=== PATIENT | female | born 1945 | race Caucasian/White ===

== ENCOUNTER 2021-03-27 09:01 | Observation (INO) | payer MEDICARE, SELFPAY ==
[2021-03-27] VITALS (12 sets, daily range): BP systolic 122–171; BP diastolic 61–90; PULSE 63–86; RESP 16; TEMP 36.1–37.3; O2SAT 94–100; BMI 20.5
--- NOTE | 2021-03-27 | APP_PTH ---
PATIENT: RENETTA RILEY LOC: MS3 U#:[id number] AGE/SX: 75/F ROOM: MD314 RE03/27/[address]: Dr. Betsy Dobbins MD : 1945 BED: 1 DIS: 03/27/2021 SPEC #: [id number] RECD: 03/29/21 11:28 STATUS: HARRIET NUNES #: [id number] JANENE: 03/27/21 00:[address]: Betsy Dobbins DEPT: SURGICAL PATHOLOGY RECD BY: Taye Estevez ENTERED: 03/29/21 11:29 SP TYPE: APPENDIX OTHR DR: Dr. Alvaro Boyce MD Tissues: Appendix, NOS Procedures: Surgery Specimen Level III HEADER OPERATION: Laparoscopic, appendectomy PRE-OP DIAGNOSIS: Acute appendicitis. No abscess or perforation. TISSUE SUBMITTED: Appendix MICROSCOPIC DIAGNOSIS Appendix, appendectomy: Acute appendicitis Acute serositis. AM;am 03/30/21 MICROSCOPIC DESCRIPTION Slides are reviewed. GROSS DESCRIPTION Received in fixative is one container labeled with the patient's name and designated appendix. The specimen consists of appendix measuring 6.0cm in length and up to 1.0 cm in diameter. No gross perforations are evident. Serial sections reveal a patent lumen with fecal material. No mass lesion is identified. [employer] Representative sections are submitted in one cassette. / AM;am 03/29/21 TC;2 CPT: 29164
--- NOTE | 2021-03-27 09:19 | CT_ITS ---
STUDY: CT ABDOMEN AND PELVIS WITH CONTRAST REASON FOR EXAM: Female, 75 years old. Abdominal pain RADIATION DOSAGE (If Supplied By Facility): CTDIvol = ( 9.97 ) mGy, DLP = ( 287.00 ) mGycm TECHNIQUE: CT images were obtained from the dome of the diaphragm to the symphysis pubis without oral contrast. IV 75mL Isovue-370 was administered. Sagittal and coronal images were reconstructed. Individualized dose optimization techniques were used for this CT. COMPARISON: None. FINDINGS: The visualized lung bases are unremarkable. The visualized portions of the heart are within normal limits. Normal liver. Gallbladder is removed. Normal spleen. Normal pancreas. Normal bilateral adrenal glands. Normal right kidney. Normal left kidney. There is no intestinal obstruction. There is appendicitis without perforation or abscess. There is mild diffuse peritoneal inflammation. Normal abdominal aorta. Normal inferior vena cava. Normal retroperitoneum. Normal urinary bladder. Normal abdominal wall. Normal osseous structures. CT/Abdomen/Pelvis W IV Cont ONLY IMPRESSION: 1. Acute appendicitis. No abscess or perforation. 2. Possibly mild peritonitis/mesenteric edema, nonspecific. Electronically Signed: Melvi Márquez MD at 11:10 EDT Tel , Service support ,
--- NOTE | 2021-03-27 09:20 | ED.VIS.GI ---
HPI HPI - GI History of Present Illness Chief Complaint: Abd Pain Informant: patient Narrative Narrative: 75-year-old female presents the emergency room with abdominal pain and vomiting. Patient states that last night she went to a fish brown at her [employer]. She ate around 1600 hrs. She began to have an a aching gnawing sensation in her epigastrium and right upper quadrant. States that during the night it got worse. At 4:00 in the morning she was vomiting. Pain was not radiating to her flank. She states that reminded her very much of the pain she had when she had a cholecystectomy 5 years ago. Patient denies any history of pancreatitis. She states that when she threw up it was basically her meal that she had 8 to 12 hours previously. No diarrhea. No fever. [facility] Medical History Hypothyroidism Home Medications levothyroxine 50 mcg PO DAILY 01/21/16 [History Last Taken Unknown] Allergy/AdvReac Type Severity Reaction Status Date / Time Penicillins [PCN] AdvReac Hives Verified 03/27/21 09:04 Surgical History S/P cholecystectomy Social History (Updated 03/27/21 @ 09:[address] Harrison Muñoz DO) Smoking Status: Never smoker details: On the keto diet substance use type: does not use ROS ROS ED Constitutional Constitutional ED: Denies chills or weight loss Eyes Eyes: Denies change in vision or diplopia ENT ENT ED: Denies ear pain, rhinorrhea or sore throat Cardiovascular Cardiovascular: Denies chest pain, orthopnea, palpitations or racing heartbeat Respiratory/Chest Respiratory/Chest: Denies cough, dyspnea or orthopnea Gastrointestinal Gastrointestinal: Reports abdominal pain, nausea and vomiting; Denies diarrhea Genitourinary Genitourinary ED: Denies dysuria, hematuria or urinary frequency Musculoskeletal Musculoskeletal: Denies arthralgias or myalgias Integumentary Denies abscess or rash Neurologic Neurologic: Denies headache(s) or weakness Psychiatric Psychiatric: Denies anxiety, depression, suicidal ideation or suicidal thoughts Endocrine Endocrinology: Denies polydipsia, polyphagia or polyuria Allergic/Immunologic Allergic/Immunologic ED: Denies mouth swelling, tongue swelling or urticaria EXAM Physical Exam Const Vital Signs: 03/27/21 09:02 Temperature 97.4 F L Temperature Source Temporal Pulse Rate 66 Respiratory Rate 16 Blood Pressure 156/72 H Blood Pressure Mean 100 Pulse Ox 98 Oxygen Delivery Method Room Air Positive well nourished and well developed General Appearance ED: well developed HEENT Reports normocephalic, head/scalp atraumatic and moist mucous membranes Eyes PERRL and EOMs intact bilaterally Neck no lymphadenopathy, supple and no JVD Resp normal respiratory effort and clear to auscultation bilaterally Cardio regular rate, regular rhythm and no murmurs GI normal to inspection, nondistended, normoactive bowel sounds GI Narrative: Mild tenderness palpation to the right abdomen Inspection: Negative for abdominal distention Auscultation: normoactive bowel sounds Palpation: soft; Negative for guarding or rebound tenderness present Back/Spine no CVA tenderness and normal ROM Extremity normal to inspection General Extremety ED: Negative for edema General Extremity: Negative for edema Neuro oriented x3 and CN's II-XII intact bilaterally Sensorium / Orientation: alert Motor Exam: strength 5/5 throughout Psych mental status grossly normal Mood & Affect: Negative for depressed or tearful Skin no rashes or lesions noted and no wounds MDM MDM MDM Narrative Medical decision making narrative: White count elevated 13.5. CT the abdomen pelvis demonstrates uncomplicated appendicitis. Patient is feeling better after some morphine and Zofran. We are going to change her preoperative EKG and administer Cipro Flagyl due to penicillin allergy. Dr. Dobbins has been contacted will be in to see the patient Lab Data Attestation: I reviewed the patient's lab results. Labs: Laboratory Results - last 24 hr 03/27/21 03/27/21 09:25 09:25 WBC 13.5 H RBC 4.24 Hgb 13.8 Hct 41.3 MCV 97.4 MCH 32.5 H MCHC 33.4 RDW Std Deviation 45.1 H RDW Coeff of Peter 12.7 Plt Count 166 MPV 10.6 Immature Gran % (Auto) 0.400 Neut % (Auto) 92.0 H Lymph % (Auto) 3.9 L [place] % (Auto) 3.6 Eos % (Auto) 0.0 Baso % (Auto) 0.1 Absolute Neuts (auto) 12.4 H Absolute Lymphs (auto) 0.53 L Nucleated RBC % 0 Sodium 137 Potassium 3.7 Chloride 105 Carbon Dioxide 25.0 Anion Gap 7 BUN 30 H Creatinine 0.97 Estim Creat Clear Calc 35.83 Est GFR (MDRD) Af Amer 72 Est GFR (MDRD) Non-Af 59 L BUN/Creatinine Ratio 31.0 H Glucose 111 H Calcium 9.0 Total Bilirubin 0.80 Direct Bilirubin 0.17 AST 17 ALT 18 Alkaline Phosphatase 72 Total Protein 7.7 Albumin 3.8 Globulin 3.9 Lipase 217 Radiography Diagnostic Testing: Radiology Impression Abdomen/Pelvis CT 03/27/21 09:19 IMPRESSION: 1. Acute appendicitis. No abscess or perforation. 2. Possibly mild peritonitis/mesenteric edema, nonspecific. Electronically Signed: Melvi Márquez MD at 11:10 EDT Tel , Service support , EKG Initial EKG: Attestation: I personally reviewed and interpreted this EKG as follows: Comments: EKG is a normal sinus rhythm with a ventricular rate of 67 bpm. Discharge Plan Dx/Rx/DC Orders Clinical Impression: Acute appendicitis Disposition Disposition: Acute Care Hospital [facility]
[2021-03-27] MEDS: Ondansetron 4 MG/2 ML Vial IV ×2 (09:31→17:25)
[2021-03-27] MEDS: Morphine 2 MG/ML Syringe IV ×2 (09:32→17:26)
[2021-03-27 09:35] LABS: Absolute Lymphocyte Count 0.53 X10^3/uL (0.83-4.51); Absolute Neutrophil Count 12.4 X10^3/uL (2.0-7.7); Basophil# 0.02 X10^3/uL; Basophil% 0.1 % (0-1); Hematocrit 41.3 % (37-47); Hemoglobin 13.8 g/dL (12.0-15.0); Lymphocyte # 0.53 X10^3/ul (0.83-4.51); Lymphocyte % 3.9 % (19-41); Mean Corp Hgb Conc 33.4 g/dL (32-36); Mean Corpuscular Hgb 32.5 pg (27.0-32.0); Mean Corpuscular Volume 97.4 fL (81-99); Mean Platelet Vol. 10.6 fl (6.2-12.0); Monocyte# 0.48 X10^3/uL; Monocyte% 3.6 % (0-10); NRBC Flagged by Analyzer 0 % (0-5); Neutrophil # 12.44 X10^3/uL (2.7-7.7); POSITIVE DIFFERENTIAL YES; Platelet Count 166 K/mm3 (150-450); RBC Distribution Width CV 12.7 % (11.6-14.6); RBC Distribution Width SD 45.1 fl (35.1-43.9); Red Blood Count 4.24 M/mm3 (4.2-5.4); White Blood Count 13.5 K/mm3 (4.4-11.0)
[2021-03-27 09:36] LABS: Differential Indicated SCAN CRITERIA MET
[2021-03-27 09:53] LABS: AST(SGOT) 17 U/L (15-37); Alanine Aminotransfer ALT/SGPT 18 U/L (13-56); Albumin, Serum 3.8 g/dL (3.2-5.0); Alkaline Phosphatase 72 U/L (45-117); Anion Gap 7 (5-15); BUN 30 mg/dL (7-18); Bilirubin, Direct 0.17 mg/dL (0.00-0.30); Chloride 105 mmol/L (98-107); Creatinine, Serum 0.97 mg/dL (0.55-1.02); EST Glomerular Filtration Rate 59 mL/min (>60); Est Glom Filt Rate - Afr Amer 72 mL/min (>60); Estimated Creatinine Clearance 35.83 ml/min; Globulin 3.9 g/dL (2.2-4.2); Glucose 111 mg/dL (74-106); Lipase 217 U/L (73-393); Potassium 3.7 mmol/L (3.5-5.1); Protein, Total 7.7 g/dL (6.4-8.2); Sodium Level 137 mmol/L (136-145)
--- NOTE | 2021-03-27 11:40 | EKG12_ITS ---
Test Reason : PRE OP Blood Pressure : / mmHG Vent. Rate : 067 BPM Atrial Rate : 067 BPM P-R Int : 166 ms QRS Dur : 086 ms QT Int : 418 ms P-R-T Axes : 079 063 068 degrees QTc Int : 441 ms Normal sinus rhythm Nonspecific ST and T wave abnormality Abnormal ECG Confirmed by RODRIGO GUTIERREZ, SANKET ([id number]), fashion editor DUYEN WARD ([id number]) on 03/29/2021 8:51:09 AM Referred By: Confirmed By:SANKET WALLACE MD
[2021-03-27] MEDS: Ciprofloxacin 400 MG/200 ML BAG 200 MG IV (12:09)
--- NOTE | 2021-03-27 12:14 | PCM.HP.STD ---
HPI - General General Date of Admission: 03/27/21 HPI Narrative RENETTA RILEY, is a 75 F who presents to the ER due to right lower quadrant pain. Pain started last night patient had nausea and vomiting this morning. Patient CT abdomen pelvis consistent with acute appendicitis. Patient white blood cell count is 13.5. Patient is receiving Cipro/Flagyl IV in the ER. Patient did have a colonoscopy about a year ago that was normal. [facility] Medical History Hypothyroidism Home Medications levothyroxine 50 mcg PO DAILY 01/21/16 [History Last Taken Unknown] Allergy/AdvReac Type Severity Reaction Status Date / Time Penicillins [PCN] AdvReac Hives Verified 03/27/21 09:04 Surgical History S/P cholecystectomy Social History (Updated 03/27/21 @ 09:[address] Harrison Muñoz DO) Smoking Status: Never smoker details: On the keto diet substance use type: does not use Vital Signs Vital Signs Vital Signs: 03/27/21 09:02 03/27/21 12:05 Temperature 97.4 F L 98.4 F Temperature Source Temporal Oral Pulse Rate 66 74 Respiratory Rate 16 16 Blood Pressure 156/72 H 161/78 H Blood Pressure Mean 100 105 Blood Pressure Source Monitor Blood Pressure Position Semi-Fowlers Blood Pressure Location Right Arm Pulse Ox 98 100 Oxygen Delivery Method Room Air Room Air Weight Weight: 101 lb 6.602 oz Body Mass Index (BMI) 20.5 Physical Exam Const alert, oriented x3 and no apparent distress HEENT normocephalic and head/scalp atraumatic Resp normal respiratory effort Cardio regular rate GI soft to palpation; Negative for non-distended Palpation: tender RLQ; Negative for guarding Extremity no clubbing, cyanosis or edema Neuro CN's II-XII intact bilaterally Psych mental status grossly normal Results Lab / Micro Data Result Diagrams: 03/27/21 09:25 03/27/21 09:25 Labs: Laboratory Results - last 24 hr 03/27/21 09:25: WBC 13.5 H, RBC 4.24, Hgb 13.8, Hct 41.3, MCV 97.4, MCH 32.5 H, MCHC 33.4, RDW Std Deviation 45.1 H, RDW Coeff of Peter 12.7, Plt Count 166, MPV 10.6, Immature Gran % (Auto) 0.400, Neut % (Auto) 92.0 H, Lymph % (Auto) 3.9 L, [place] % (Auto) 3.6, Eos % (Auto) 0.0, Baso % (Auto) 0.1, Absolute Neuts (auto) 12.4 H, Absolute Lymphs (auto) 0.53 L, Nucleated RBC % 0 03/27/21 09:25: Sodium 137, Potassium 3.7, Chloride 105, Carbon Dioxide 25.0, Anion Gap 7, BUN 30 H, Creatinine 0.97, Estim Creat Clear Calc 35.83, Est GFR (MDRD) Af Amer 72, Est GFR (MDRD) Non-Af 59 L, BUN/Creatinine Ratio 31.0 H, Glucose 111 H, Calcium 9.0, Total Bilirubin 0.80, Direct Bilirubin 0.17, AST 17, ALT 18, Alkaline Phosphatase 72, Total Protein 7.7, Albumin 3.8, Globulin 3.9, Lipase 217 Radiology Impression Abdomen/Pelvis CT 03/27/21 09:19 IMPRESSION: 1. Acute appendicitis. No abscess or perforation. 2. Possibly mild peritonitis/mesenteric edema, nonspecific. Electronically Signed: Melvi Márquez MD at 11:10 EDT Tel , Service support , Assessment & Plan Assessment/Plan (1) Acute appendicitis: PLAN: 1. Discussed procedure laparoscopic appendectomy, possible open along with the risk but not limited to bleeding, infection/abscess, injury to another organ (small bowel, colon, etc.), adhesion, hernia at incision sites, and anesthesia. Patient and her no further questions this time. Betsy Dobbins M.D. Pager: [phone] [facility] [address] [place] [address], [address] [place] [id number] Office: [phone] Procedure Criteria Type of Procedure Procedure Type: Elective Elective Risks - COVID COVID Risk Discussion: The surgeon/proceduralist and patient have discussed in detail the risk of exposure to and/or potential harm posed by the COVID-19 virus with having a surgery/procedure at this time versus the risk of delaying the surgery/procedure. It is not possible to know either the risk of delaying the surgery or procedure or chance of getting an infection with perfect accuracy, but a joint decision was made between the patient and the surgeon/proceduralist to proceed at this time with the scheduled surgery/procedure as indicated on the consent form.
[2021-03-27] MEDS: metroNIDAZOLE 500 MG/100 ML BAG 100 MG IV (13:00)
[2021-03-27] MEDS: Bupivacaine Mpf 0.5% 30 ML VIAL (13:18)
--- NOTE | 2021-03-27 13:28 | PCM.OPRPT ---
Report of Operation Date of Procedure: 03/27/21 Pre-Operative Diagnosis: acute appendicitis Post-Operative Diagnosis: acute appendicitis Surgery/Procedure Performed:: laparoscopic appendectomy Surgeon: Betsy Dobbins Type of Anesthesia: General/Supplemental Anesthesiologist: Rob Ackerman Special Medications: cipro 400 mg IV x1, flagy 500 mg IV x1 Specimen's removed: appendix Estimated Blood Loss (mL): <10 cc Fluids Replaced: per anesthesia Description of Procedure: Indications: 75-year-old female presented to the ER with new right lower quadrant pain yesterday. On workup she was found to have acute appendicitis on CT and a leukocytosis of 13.5. Patient was started on antibiotics in the ER for acute appendicitis-cipro/flagyl IV. Description of the procedure: The patient was placed on operating table in supine position. General anesthesia was induced. A timeout was completed verifying correct patient, procedure, position and special equipment prior to beginning procedure. Abdomen was prepped and draped in usual sterile fashion. Incision was made in the natural skin line [above] the umbilicus with a 15 blade scalpel. The fascia was elevated and incised. Entry into the peritoneum was confirmed visually and no bowel was noted in the vicinity of the incision. The Martinez trocar was placed under direct vision. Abdomen insufflated with a pressure of 12-15 mmHg. Patient tolerated insertion well. The scope was inserted and the abdomen inspected. No injuries from initial trocar placement were noted. Minimal amount of fluid was seen in the right lower quadrant. An direct visualization 2 -5 mm trocars were placed one above the symphysis pubis and below the hairline and one in the left lower quadrant lateral to the rectus muscle. Care is taken to avoid injury to the bladder and inferior epigastric vessels. The table was placed in Trendelenburg position with the right side elevated. The appendix was grasped with atraumatic grasper and elevated. It was noted to be inflamed. A window was developed in the mesoappendix at the point between the base of the appendix and the cecum. An endoscopic 45 mm linear cutting stapler blue load was then used to divide and staple the base of the appendix. Enseal was used to divide the mesoappendix. The appendix was withdrawn into the Martinez trocar after being placed endoscopically retrieval bag. Appendix was sent to pathology. The appendiceal stump was then irrigated and hemostasis was assured. Fluid was suctioned no other pathology was identified. Secondary trochars were removed under direct visualization. No bleeding was noted trocar sites. The laparoscope withdrawn and the umbilical trocar removed. The abdomen was allowed to collapse. Local anesthesia of 30 mL of 0.5% Marcaine was used at the incision sites. The umbilical trocar site was closed with the [id number] 0 Vicryl suture. The skin was closed up to clear sutures of 4-0 Monocryl and Steri-Strips. The patient was extubated. The patient tolerated the procedure well and was taken to the postanesthesia care unit in satisfactory condition. Complications none
--- NOTE | 2021-03-27 13:41 | EX.PCM.DISCH ---
Discharge Instructions Diet Discharge Diet: Light diet - advance as tolerated Activity Discharge Activity: May Not Drive (while taking narcotic pain medications.) May shower in (days): 1 Lifting Restrictions: no lifting >20 lbs x 2 wks, no strenuous exercise for 4 wks Dressing / Incision Call your doctor if your incision/area has: Continuous Slow Oozing, Sudden Increased Bleeding, Increased Pain/ Swelling, Increased Redness, Foul Smelling Discharge and Swelling at the incision site Call your doctor if you observe: Fever of 101 or Higher Remove Dressing in: 2 days Cleanse incision/area with: Soap & Water Additional Dressing/Incision Instructions:: Steri-Strips will fall off in 7 to 10 days, if they do not fall off okay to remove after 10 days. Follow Up Care Please Follow Up With: Betsy Dobbins MD When: Call the office for a follow-up appointment 2 weeks; after 5 PM and on the weekends call [phone] with any concerns. Test Results: Test results from this visit will be discussed in further detail at your follow-up appointment, if applicable. Discharge Plan Admission Admit Date/Time: 03/27/21 11:54 Attending Provider: Betsy Dobbins Primary Care Provider: Alvaro Boyce Discharge Orders/Prescriptions Prescriptions: New oxycodone-acetaminophen 5-325 mg tablet 1 tab PO Q6H PRN (Reason: pain) 4 Days Qty: 10 RF: 0 Continued levothyroxine 50 MCG tablet 50 mcg PO DAILY RF: 0 Referrals / Follow Up: Alvaro Boyce MD [Primary Care Provider] - Disposition Disposition (needs filled in before D/C Order can be placed): Home, Self Care
[2021-03-27] MEDS: 0.9% Normal Saline 1,000 ML 100 ML IV (18:28)
--- NOTE | 2021-03-27 21:23 | NURSING ---
Pharmacy delivered pt's pain medication to room.
== END 2021-03-27 21:30 | disposition home or self-care (01) ==
LOC: ED 11:54 → MS3 12:03
PROVIDERS: Admitting Provider Surgery; Emergency Provider Emergency Medicine; PCP Family Medicine; Visit Provider Surgery
PROC: 0DTJ4ZZ Resection of Appendix, Percutaneous Endoscopic Approach (ICD-10-PCS; CPT 44970; principal; 2021-03-27 12:45)
DX: K35.80 Unspecified acute appendicitis (principal); E03.9 Hypothyroidism, unspecified; Z79.890 Hormone replacement therapy
CPT/HCPCS: 44970; 74177; 80048; 80076; 83690; 85025; 87426; 88304; 93005; 96361; 96374; 96375; 96376; 99251; 99284; J7030; Q9967; A4216; C1760; G0463; J0744; J2405

== ENCOUNTER 2023-06-06 14:40 | Emergency (ER) | payer MEDICARE, SELFPAY ==
[2023-06-06 14:41] VITALS: BP 184/74; PULSE 54; RESP 16; TEMP 37.2; O2SAT 98; BMI 21.2
--- NOTE | 2023-06-06 15:21 | CT_ITS ---
INDICATION: Abdominal pain EXAMINATION: CT ABDOMEN AND PELVIS WITH CONTRAST - CT Abdomen And Pelvis W/ Contrast Injection TECHNIQUE: Helically acquired images were obtained of the abdomen and pelvis following IV contrast. A radiation dose optimization technique was used for this scan. IV Contrast dosage and agent: 75 cc Isovue-370 Oral contrast: Yes. COMPARISON: 03/27/2021 FINDINGS: LOWER CHEST: Lung bases are clear. No cardiomegaly or pericardial effusion. LIVER: Homogeneous. No concerning focal mass. GALLBLADDER AND BILIARY TREE: Cholecystectomy. No intra- or extrahepatic biliary ductal dilation. PANCREAS: No focal cystic or solid mass. SPLEEN: Normal size without focal cystic or solid mass. ADRENAL GLANDS: No nodules. KIDNEYS AND URETERS: Nonobstructing bilateral renal calculi. Right hydroureteronephrosis without obstructing calculus in the lumen of the right ureter. PERITONEUM: No ascites or free air. BOWEL: Prior appendectomy. No stomach or bowel distension. No focal inflammatory change. LYMPH NODES: No enlarged mesenteric or retroperitoneal lymph nodes. VESSELS: Aorta is non-dilated. URINARY BLADDER: Unremarkable. REPRODUCTIVE ORGANS: No pelvic masses. ABDOMINAL WALL: No discrete abdominal or pelvic wall hernia. BONES: No acute or aggressive abnormality. CT/Abdomen/Pelvis WITH Contrast IMPRESSION: Right hydroureteronephrosis without obstructing ureteral calculus. Findings may represent recent passage of urinary calculus no longer present or ascending UTI. Bilateral nonobstructing nephrolithiasis. Electronically Signed: Julian Rosa MD at 19:08 EST ,
--- NOTE | 2023-06-06 15:28 | ED.VIS.GI ---
HPI HPI - GI History of Present Illness Chief Complaint: Abd Pain Informant: patient Abdominal Pain/Flank Pain Onset: Yesterday Context: Gradual Onset Timing: Continuous Quality: Sharp Location: RUQ and Right Flank Current Severity: Severe Maximum Severity: Severe Worsened by: Nothing Relieved by: Nothing Nausea/Vomiting/Emesis GI Symptom: Positive for Nausea and Vomiting Onset: Yesterday Quality: Positive for Blood streaks and Hematemesis Diarrhea/Melena/Hematochezia GI Symptom: Negative for Diarrhea, Melena or Hematochezia Associated Symptoms Associated Symptoms: Negative for Dysuria, Frequency or Hematuria Narrative Narrative: Patient presents with abdominal pain that began yesterday. Patient states it is mainly over the right upper abdomen and radiates around to the right flank area. Patient states she has been having some nausea and vomiting today. Patient states she has been vomiting up some blood-streaked emesis. Patient denies any melena or hematochezia. Patient denies any diarrhea. Patient describes her pain as sharp. Patient states it is constant. Patient states nothing makes it better and nothing makes it worse. Patient denies any dysuria or hematuria. Patient denies any fevers or chills. [facility] Medical History Hypothyroidism Home Medications levothyroxine 50 mcg tablet 50 mcg PO DAILY 01/21/16 [History Last Taken Unknown] Allergy/AdvReac Type Severity Reaction Status Date / Time Penicillins [PCN] AdvReac Hives Verified 06/06/23 14:42 Surgical History History of laparoscopic appendectomy (~03/2021) S/P cholecystectomy Social History Smoking Status: Never smoker details: On the keto diet substance use type: does not use ROS ROS ED Constitutional Constitutional ED: Denies chills or fever(s) Eyes Eyes: Denies blurry vision or change in vision ENT ENT ED: Denies rhinorrhea or sore throat Cardiovascular Cardiovascular: Denies chest pain or palpitations Respiratory/Chest Respiratory/Chest: Denies cough or dyspnea Gastrointestinal Gastrointestinal: Reports abdominal pain, nausea and vomiting; Denies diarrhea Genitourinary Genitourinary ED: Denies dysuria or hematuria Musculoskeletal Musculoskeletal: Reports back pain; Denies neck pain Integumentary Denies abscess or rash Neurologic Neurologic: Denies headache(s) or weakness Allergic/Immunologic Allergic/Immunologic ED: Denies mouth swelling or urticaria EXAM Physical Exam Const Vital Signs: 06/06/23 14:41 06/06/23 16:41 06/06/23 18:00 Temperature 98.9 F Temperature Source Temporal Pulse Rate 54 L 55 L 55 L Respiratory Rate 16 16 16 Blood Pressure 184/74 H 165/72 H 161/75 H Blood Pressure Mean 110 103 103 Pulse Ox 98 97 95 Oxygen Delivery Method Room Air Room Air Room Air 06/06/23 20:00 Temperature Temperature Source Pulse Rate 53 L Respiratory Rate 16 Blood Pressure 158/80 H Blood Pressure Mean 106 Pulse Ox 95 Oxygen Delivery Method Room Air Positive well nourished and well developed General Appearance ED: well developed and NAD HEENT Reports moist mucous membranes Neck supple and no JVD Resp normal respiratory effort and clear to auscultation bilaterally Cardio regular rate and regular rhythm GI non-distended Palpation: soft and tender epigastric and RUQ; Negative for rebound tenderness present Neuro CN's II-XII intact bilaterally, moves all extremities and no sensory deficits noted Sensorium / Orientation: alert, oriented to person, oriented to place and oriented to time Motor Exam: strength 5/5 throughout Psych mental status grossly normal and thought process normal MDM MDM MDM Narrative Medical decision making narrative: Differential diagnosis includes cholecystitis, cholelithiasis, peptic ulcer disease, duodenal ulcer, bowel obstruction, perforation, gastritis, pancreatitis, pyelonephritis, and urinary tract infection. CBC will be obtained to assess for leukocytosis and anemia. Comprehensive metabolic profile will be obtained to assess for hepatic function, renal function, and electrolyte abnormality. Lipase will be obtained to assess for pancreatitis. Urinalysis will be obtained to assess for urinary tract infection and pyelonephritis. CT scan of the abdomen pelvis will be obtained to assess for bowel obstruction, perforation, cholelithiasis, pyelonephritis. Lab Data Attestation: I reviewed the patient's lab results. Lab results narrative: CBC was reviewed and was within normal limits. Comprehensive metabolic profile was reviewed. BUN was slightly elevated at 29 and creatinine was slightly elevated at 1.14. Lipase was reviewed and was normal at 51. Urinalysis was reviewed. There is no evidence of urinary tract infection. There were 10-25 red blood cells and occult blood was 250. Labs: Laboratory Results - last 24 hr 06/06/23 06/06/23 15:30 16:40 WBC 7.8 RBC 4.23 Hgb 13.3 Hct 40.5 MCV 95.7 MCH 31.4 MCHC 32.8 RDW Std Deviation 45.5 H RDW Coeff of Peter 12.8 Plt Count 159 MPV 10.5 Immature Gran % (Auto) 0.400 Neut % (Auto) 77.2 H Lymph % (Auto) 15.3 L [place] % (Auto) 6.3 Eos % (Auto) 0.4 Baso % (Auto) 0.4 Absolute Neuts (auto) 6.0 Absolute Lymphs (auto) 1.19 Nucleated RBC % 0 Sodium 136 Potassium 3.6 Chloride 102 Carbon Dioxide 24.0 Anion Gap 10 BUN 29 H Creatinine 1.14 H Estim Creat Clear Calc 30.67 Est GFR (MDRD) Af Amer 59 L Est GFR (MDRD) Non-Af 49 L BUN/Creatinine Ratio 25.4 H Glucose 121 H Calcium 9.4 Total Bilirubin 0.80 AST 19 ALT 16 Alkaline Phosphatase 78 Total Protein 7.2 Albumin 3.9 Globulin 3.3 Albumin/Globulin Ratio 1.2 Lipase 51 Urine Color Yellow Urine Clarity Clear Urine pH 6.0 Ur Specific [place] 1.010 Urine Protein 30 H Urine Glucose (UA) Normal Urine Ketones 50 H Urine Occult Blood 250 H Urine Nitrite Negative Urine Bilirubin Negative Urine Urobilinogen Normal Ur Leukocyte Esterase 100 H Urine RBC 10-25 SEEN Urine WBC 0-5 SEEN Ur Squamous Epith Cells 0 SEEN Urine Bacteria 0 SEEN Urine Mucus 0 SEEN Radiography Diagnostic Testing: Clinical Impression(s) from Imaging Studies Abdomen/Pelvis CT 06/06/23 15:21 IMPRESSION: Right hydroureteronephrosis without obstructing ureteral calculus. Findings may represent recent passage of urinary calculus no longer present or ascending UTI. Bilateral nonobstructing nephrolithiasis. Electronically Signed: Julian Rosa MD at 19:08 EST , CT scan of the abdomen and pelvis was obtained. There is right hydroureter and hydronephrosis but no ureteral calculus noted. This could be a recent passage of ureteral calculus. There are nonobstructing calculi in the kidneys bilaterally. This was interpreted by the radiologist and was also independently reviewed by myself. Treatment and Re-Evaluation :: Patient was given IV fluids, morphine, and Zofran. Patient had minimal relief of this. Patient was given a repeat dose of morphine and a dose of Phenergan. Patient was feeling better on reevaluation. Patient was advised of her findings. Patient was instructed to drink plenty of fluids. Patient was instructed to follow-up with her primary care physician in 5 to 7 days. Patient understood and was agreeable with the plan. All questions were answered. Discharge Plan Triage Chief Complaint: Abd Pain ED Provider: Rob Goldman Dx/Rx/DC Orders Clinical Impression: Right ureteral calculus, Hypothyroidism Instructions: ED Kidney Stone, Passed Prescriptions: No Action levothyroxine 50 MCG tablet 50 mcg PO DAILY Primary Care Provider: Alvaro Boyce Referrals: Alvaro Boyce MD [Primary Care Provider] - 5-7 Days Disposition Disposition: Home, Self Care
[2023-06-06] MEDS: 0.9% Normal Saline (1000mL) 1,000 ML 1000 ML IV (15:40)
[2023-06-06] MEDS: Ondansetron 4 MG/2 ML Vial IV (15:40)
[2023-06-06] MEDS: Morphine 4 MG/ML Syringe IV ×2 (15:40→18:43)
[2023-06-06 15:44] LABS: Absolute Lymphocyte Count 1.19 X10^3/uL (0.83-4.51); Basophil# 0.03 X10^3/uL; Basophil% 0.4 % (0-1); Eosinophil# 0.03 X10^3/uL; Eosinophils% 0.4 % (0-5); Hematocrit 40.5 % (37-47); Hemoglobin 13.3 g/dL (12.0-15.0); Lymphocyte # 1.19 X10^3/ul (0.83-4.51); Lymphocyte % 15.3 % (19-41); Mean Corp Hgb Conc 32.8 g/dL (32-36); Mean Corpuscular Hgb 31.4 pg (27.0-32.0); Mean Corpuscular Volume 95.7 fL (81-99); Mean Platelet Vol. 10.5 fl (6.2-12.0); Monocyte# 0.49 X10^3/uL; Monocyte% 6.3 % (0-10); NRBC Flagged by Analyzer 0 % (0-5); Neutrophil # 6.01 X10^3/uL (2.7-7.7); Neutrophil % 77.2 % (47-70); Platelet Count 159 K/mm3 (150-450); RBC Distribution Width CV 12.8 % (11.6-14.6); RBC Distribution Width SD 45.5 fl (35.1-43.9); Red Blood Count 4.23 M/mm3 (4.2-5.4); White Blood Count 7.8 K/mm3 (4.4-11.0)
[2023-06-06 16:06] LABS: ALB/GLOB Ratio 1.2 RATIO (0.9-2.4); AST(SGOT) 19 U/L (15-37); Alanine Aminotransfer ALT/SGPT 16 U/L (13-56); Albumin, Serum 3.9 g/dL (3.2-5.0); Alkaline Phosphatase 78 U/L (45-117); Anion Gap 10 (5-15); BUN 29 mg/dL (7-18); BUN/Creat Ratio 25.4 RATIO (10-20); Calcium,Total 9.4 mg/dL (8.5-10.1); Chloride 102 mmol/L (98-107); Creatinine, Serum 1.14 mg/dL (0.55-1.02); EST Glomerular Filtration Rate 49 mL/min (>60); Est Glom Filt Rate - Afr Amer 59 mL/min (>60); Estimated Creatinine Clearance 30.67 ml/min; Globulin 3.3 g/dL (2.2-4.2); Glucose 121 mg/dL (74-106); Lipase 51 U/L (13-75); Potassium 3.6 mmol/L (3.5-5.1); Protein, Total 7.2 g/dL (6.4-8.2); Sodium Level 136 mmol/L (136-145)
[2023-06-06 16:41] VITALS: BP 165/72; PULSE 55; RESP 16; O2SAT 97
[2023-06-06] MEDS: proMETHazine 25 MG/ML Syringe 6.25 MG IM (16:43)
[2023-06-06 16:46] LABS: Bacteria 0 SEEN /hpf (None Seen); Mucous, Urine 0 SEEN /hpf (<or=2+); Squamous Epithelial Cells - UA 0 SEEN /hpf (5-10)
[2023-06-06 16:52] LABS: Color, Urine Yellow (Yellow); Glucose, Dipstick Normal (Normal); Ketone-Dipstick 50 mg/dl (Negative); Leukocyte Esterase-Dipstick 100 /ul (Negative); Nitrite-Dipstick Negative (Negative); Occult Blood-Urine 250 /ul (Negative); Protein-Dipstick 30 mg/dl (Negative); Urine Bilirubin Dipstick Negative (Negative); Urine Clarity Clear (Clear); Urine Urobilinogen Normal (Normal)
[2023-06-06 17:00] LABS: Red Blood Cells-Urine 10-25 SEEN /hpf (0-5); White Blood Cells 0-5 SEEN /hpf (0-5)
[2023-06-06 18:00] VITALS: BP 161/75; PULSE 55; RESP 16; O2SAT 95
[2023-06-06 20:00] VITALS: BP 158/80; PULSE 53; RESP 16; O2SAT 95
== END 2023-06-06 20:29 | disposition home or self-care (01) ==
PROVIDERS: Emergency Provider Emergency Medicine; PCP Family Medicine; Visit Provider Emergency Medicine
DX: N13.2 Hydronephrosis with renal and ureteral calculous obstruction (principal); E03.9 Hypothyroidism, unspecified
CPT/HCPCS: 74177; 80053; 81001; 83690; 85025; 96361; 96372; 96374; 96375; 96376; 99283; J7030; Q9967; A4216; J2405

== ENCOUNTER 2023-06-07 18:14 | Emergency (ER) | payer MEDICARE, SELFPAY ==
[2023-06-07 18:14] VITALS: BP 214/82
[2023-06-07 18:15] VITALS: PULSE 57; RESP 16; TEMP 37.3; O2SAT 99; BMI 21.4
[2023-06-07 20:25] LABS: Mucous, Urine 0 SEEN /hpf (<or=2+)
[2023-06-07 20:26] LABS: Color, Urine Yellow (Yellow); Glucose, Dipstick Normal (Normal); Leukocyte Esterase-Dipstick 25 /ul (Negative); Nitrite-Dipstick Negative (Negative); Occult Blood-Urine 250 /ul (Negative); Protein-Dipstick 30 mg/dl (Negative); Specific Gravity, Urine 1.015 (1.002-1.030); Urine Bilirubin Dipstick Negative (Negative); Urine Clarity Clear (Clear); Urine Urobilinogen Normal (Normal)
[2023-06-07 20:27] LABS: Ketone-Dipstick 150 mg/dl (Negative)
--- NOTE | 2023-06-07 20:33 | EDS_ITS ---
HPI HPI - GI History of Present Illness Chief Complaint: Flank Pain Informant: patient Abdominal Pain/Flank Pain Onset: Today Context: Gradual Onset Timing: Continuous Quality: Sharp Location: RUQ and Right Flank Worsened by: Nothing Relieved by: Nothing Nausea/Vomiting/Emesis GI Symptom: Positive for Nausea and Vomiting Quality: Positive for Nonbilious; Negative for Blood streaks, Coffee ground or Hematemesis Diarrhea/Melena/Hematochezia GI Symptom: Negative for Diarrhea, Melena or Hematochezia Associated Symptoms Associated Symptoms: Negative for Dysuria, Frequency or Hematuria Narrative Narrative: Patient presents with right upper quadrant and right flank pain that began again today. Patient was seen here for this yesterday. Patient was diagnosed with a kidney stone that had passed. Patient states that when she left last night her pain had resolved. Patient states it began approximately 4 hours prior to arrival tonight. Patient describes it as sharp. Patient states it has been constant for the past 4 hours. Patient states it is mainly over the right upper abdomen and right flank area. Patient admits to some nausea and vomiting. Patient denies any hematemesis or coffee-ground emesis. Patient denies any diarrhea, melena, or hematochezia. Patient states she has been constipated recently. Patient denies any urinary complaints. Patient denies any fevers or chills. [facility] Medical History Hypothyroidism Home Medications levothyroxine 50 mcg tablet 50 mcg PO DAILY 01/21/16 [History Last Taken Unknown] hydrocodone-acetaminophen 5-325mg 5mg-325mg 1 tab PO Q6H PRN PRN Pain 3 days #10 TABLETS 06/07/23 [Rx Last Taken Unknown] omeprazole 20 mg capsule,delayed release 20 mg PO DAILY #30 CAPSULES 06/07/23 [Rx Last Taken Unknown] Allergy/AdvReac Type Severity Reaction Status Date / Time Penicillins [PCN] AdvReac Hives Verified 06/07/23 18:14 Surgical History History of laparoscopic appendectomy (~03/2021) S/P cholecystectomy Social History Smoking Status: Never smoker details: On the keto diet substance use type: does not use ROS ROS ED Constitutional Constitutional ED: Denies chills or fever(s) Eyes Eyes: Denies blurry vision or change in vision ENT ENT ED: Denies rhinorrhea or sore throat Cardiovascular Cardiovascular: Denies chest pain or palpitations Respiratory/Chest Respiratory/Chest: Denies cough or dyspnea Gastrointestinal Gastrointestinal: Reports abdominal pain, constipation, nausea and vomiting Genitourinary Genitourinary ED: Denies dysuria or hematuria Musculoskeletal Musculoskeletal: Denies back pain or neck pain Integumentary Denies abscess or rash Neurologic Neurologic: Denies headache(s) or weakness Allergic/Immunologic Allergic/Immunologic ED: Denies mouth swelling or urticaria EXAM Physical Exam Const Vital Signs: 06/07/23 18:15 06/07/23 18:14 Temperature 99.1 F Temperature Source Temporal Pulse Rate 57 L Respiratory Rate 16 Blood Pressure 214/82 H Blood Pressure Mean 126 Pulse Ox 99 Oxygen Delivery Method Room Air Positive well nourished and well developed General Appearance ED: well developed and NAD HEENT Reports moist mucous membranes Neck supple and no JVD Resp normal respiratory effort and clear to auscultation bilaterally Cardio regular rate and regular rhythm GI Palpation: soft and tender RUQ; Negative for guarding or rebound tenderness present Extremity full ROM Neuro CN's II-XII intact bilaterally, moves all extremities and no sensory deficits noted Sensorium / Orientation: alert Motor Exam: strength 5/5 throughout Psych mental status grossly normal and thought process normal MDM MDM MDM Narrative Medical decision making narrative: Differential diagnosis includes ureteral calculus, nephrolithiasis, duodenal ulcer, peptic ulcer disease, bowel obstruction, perforation, pyelonephritis, and urinary tract infection. CBC will be obtained to assess for leukocytosis and anemia. Comprehensive metabolic profile will be obtained to assess for hepatic function, renal function, and electrolyte abnormality. Urinalysis will be obtained to assess for urinary tract infection and hematuria. CT scan of the abdomen and pelvis will be obtained to assess for ureteral calculus, bowel obstruction, and perforation. Lab Data Attestation: I reviewed the patient's lab results. Lab results narrative: CBC was reviewed and was within normal limits. Comprehensive metabolic profile was reviewed. BUN was slightly elevated at 25 and creatinine was slightly elevated at 1.17. Potassium was slightly low at 3.2. Urinalysis was reviewed. There were 10-25 red blood cells. There is no evidence of urinary tract infection however. Labs: Laboratory Results - last 24 hr 06/07/23 20:20 WBC 9.6 RBC 4.36 Hgb 14.1 Hct 42.2 MCV 96.8 MCH 32.3 H MCHC 33.4 RDW Std Deviation 46.5 H RDW Coeff of Peter 13.0 Plt Count 160 MPV 10.7 Immature Gran % (Auto) 0.300 Neut % (Auto) 87.1 H Lymph % (Auto) 7.0 L [place] % (Auto) 5.1 Eos % (Auto) 0.1 Baso % (Auto) 0.4 Absolute Neuts (auto) 8.4 H Absolute Lymphs (auto) 0.67 L Nucleated RBC % 0 Sodium 137 Potassium 3.2 L Chloride 100 Carbon Dioxide 22.0 Anion Gap 15 BUN 25 H Creatinine 1.17 H Estim Creat Clear Calc 30.08 Est GFR (MDRD) Af Amer 57 L Est GFR (MDRD) Non-Af 47 L BUN/Creatinine Ratio 21.4 H Glucose 104 Calcium 9.4 Total Bilirubin 1.00 AST 29 ALT 20 Alkaline Phosphatase 81 Total Protein 7.8 Albumin 4.1 Globulin 3.7 Albumin/Globulin Ratio 1.1 Urine Color Yellow Urine Clarity Clear Urine pH 6.0 Ur Specific [place] 1.015 Urine Protein 30 H Urine Glucose (UA) Normal Urine Ketones 150 A* Urine Occult Blood 250 H Urine Nitrite Negative Urine Bilirubin Negative Urine Urobilinogen Normal Ur Leukocyte Esterase 25 H Urine RBC 10-25 SEEN Urine WBC 0-5 SEEN Ur Squamous Epith Cells 0-5 SEEN Amorphous Sediment 1+ URATE Urine Bacteria RARE Urine Mucus 0 SEEN Radiography Diagnostic Testing: Clinical Impression(s) from Imaging Studies Abdomen/Pelvis CT 06/07/23 20:50 IMPRESSION: Bilateral nephrolithiasis. Moderate right renal pelvocaliectasis of uncertain etiology without definitive evidence for ureteral calculus. However the entire course of the ureter is not well visualized and repeat study with IV contrast would be helpful for more definitive evaluation Electronically Signed: Avel Mercado MD at 21:28 EST Reading Location ID and State: [facility] / [place] Tel , Service support , CT scan of the abdomen pelvis was obtained. There is bilateral nephrolithiasis. There is no ureteral calculus. There is no evidence of hydroureter or hydronephrosis. This was interpreted by the radiologist and was also independently reviewed by myself. Treatment and Re-Evaluation :: Patient was given IV fluids, morphine, and Zofran. Patient is feeling better on reevaluation. Patient was advised of her findings. Patient was advised that this could be a duodenal ulcer. Patient was given a prescription for omeprazole. Patient was also given a prescription for a short course of [place] for pain. Patient was instructed to follow-up with her primary care physician in 5 to 7 days. Patient and spouse understood and were agreeable with the plan. All questions were answered. Discharge Plan Triage Chief Complaint: Flank Pain ED Provider: Rob Goldman Dx/Rx/DC Orders Clinical Impression: Abdominal pain, right upper quadrant Instructions: ED Abdominal Pain Unkn Cause Fem Prescriptions: New hydrocodone-acetaminophen [hydrocodone-acetaminophen] 5-325 mg tablet 1 tab PO Q6H PRN PRN (Reason: Pain) 3 Days Qty: 10 0RF omeprazole [omeprazole] 20 mg capsule,delayed release(DR/EC) 20 mg PO DAILY Qty: 30 0RF No Action levothyroxine 50 MCG tablet 50 mcg PO DAILY Primary Care Provider: Alvaro Boyce Referrals: Alvaro Boyce MD [Primary Care Provider] - 3-5 Days Disposition Disposition: Home, Self Care
[2023-06-07 20:35] LABS: Absolute Lymphocyte Count 0.67 X10^3/uL (0.83-4.51); Absolute Neutrophil Count 8.4 X10^3/uL (2.0-7.7); Basophil# 0.04 X10^3/uL; Basophil% 0.4 % (0-1); Eosinophil# 0.01 X10^3/uL; Eosinophils% 0.1 % (0-5); Hematocrit 42.2 % (37-47); Hemoglobin 14.1 g/dL (12.0-15.0); Lymphocyte # 0.67 X10^3/ul (0.83-4.51); Mean Corp Hgb Conc 33.4 g/dL (32-36); Mean Corpuscular Hgb 32.3 pg (27.0-32.0); Mean Corpuscular Volume 96.8 fL (81-99); Mean Platelet Vol. 10.7 fl (6.2-12.0); Monocyte# 0.49 X10^3/uL; Monocyte% 5.1 % (0-10); NRBC Flagged by Analyzer 0 % (0-5); Neutrophil # 8.37 X10^3/uL (2.7-7.7); Neutrophil % 87.1 % (47-70); Platelet Count 160 K/mm3 (150-450); RBC Distribution Width SD 46.5 fl (35.1-43.9); Red Blood Count 4.36 M/mm3 (4.2-5.4); White Blood Count 9.6 K/mm3 (4.4-11.0)
[2023-06-07 20:38] LABS: Bacteria RARE /hpf (None Seen); Red Blood Cells-Urine 10-25 SEEN /hpf (0-5); Squamous Epithelial Cells - UA 0-5 SEEN /hpf (5-10); White Blood Cells 0-5 SEEN /hpf (0-5)
[2023-06-07 20:39] LABS: Amorphous Sediment 1+ URATE
--- NOTE | 2023-06-07 20:50 | CT_ITS ---
STUDY: CT ABDOMEN AND PELVIS WITHOUT CONTRAST REASON FOR EXAM: Female, 77 years old. Right flank pain RADIATION DOSAGE (If Supplied By Facility): CTDIvol = ( 6.13 ) mGy, DLP = ( 251.08 ) mGycm TECHNIQUE: Transaxial images were obtained from the dome of the diaphragm to the symphysis pubis without oral contrast, and without intravenous contrast. Sagittal and coronal images were reconstructed. Individualized dose optimization techniques were used for this CT. COMPARISON: March 27, 2021 FINDINGS: There is minor atelectasis at the left lung base The visualized portions of the heart are within normal limits. Normal liver. Gallbladder not visualized status post cholecystectomy. Normal spleen. Normal pancreas. Normal bilateral adrenal glands. Multiple nonobstructing right renal calculi. Moderate right renal pelvocaliectasis. No definitive evidence for ureteral calculus however there is limited visualization of the ureter Nonobstructing calculus in the lower pole left kidney. No evidence for obstruction or mass Normal visualized stomach. Normal small intestine. Normal colon. No evidence for acute appendicitis Mild atherosclerotic change of the aorta without evidence for. Normal inferior vena cava. Normal retroperitoneum. Normal urinary bladder. Normal abdominal wall. Lumbar spine demonstrates severe levoscoliosis and degenerative change. CT/Abdomen/Pelvis without Cont IMPRESSION: Bilateral nephrolithiasis. Moderate right renal pelvocaliectasis of uncertain etiology without definitive evidence for ureteral calculus. However the entire course of the ureter is not well visualized and repeat study with IV contrast would be helpful for more definitive evaluation Electronically Signed: Avel Mercado MD at 21:28 EST ,
[2023-06-07 20:51] LABS: ALB/GLOB Ratio 1.1 RATIO (0.9-2.4); AST(SGOT) 29 U/L (15-37); Alanine Aminotransfer ALT/SGPT 20 U/L (13-56); Albumin, Serum 4.1 g/dL (3.2-5.0); Alkaline Phosphatase 81 U/L (45-117); Anion Gap 15 (5-15); BUN 25 mg/dL (7-18); BUN/Creat Ratio 21.4 RATIO (10-20); Calcium,Total 9.4 mg/dL (8.5-10.1); Chloride 100 mmol/L (98-107); Creatinine, Serum 1.17 mg/dL (0.55-1.02); EST Glomerular Filtration Rate 47 mL/min (>60); Est Glom Filt Rate - Afr Amer 57 mL/min (>60); Estimated Creatinine Clearance 30.08 ml/min; Globulin 3.7 g/dL (2.2-4.2); Glucose 104 mg/dL (74-106); Potassium 3.2 mmol/L (3.5-5.1); Protein, Total 7.8 g/dL (6.4-8.2); Sodium Level 137 mmol/L (136-145)
[2023-06-07] MEDS: 0.9% Normal Saline (1000mL) 1,000 ML 1000 ML IV (21:12)
[2023-06-07] MEDS: Ondansetron 4 MG/2 ML Vial IV (21:12)
[2023-06-07] MEDS: Morphine 4 MG/ML Syringe IV (21:12)
[2023-06-07 23:43] VITALS: BP 138/74; PULSE 67; RESP 19; O2SAT 99
== END 2023-06-07 23:44 | disposition home or self-care (01) ==
PROVIDERS: Emergency Provider Emergency Medicine; PCP Family Medicine; Visit Provider Emergency Medicine
DX: R10.11 Right upper quadrant pain (principal); R11.2 Nausea with vomiting, unspecified
CPT/HCPCS: 74176; 80053; 81001; 85025; 96361; 96374; 96375; 99283; J7030; A4216; J2405